=== PATIENT | female | born 1975 | race African-American/Black ===

== ENCOUNTER 2020-04-18 23:07 | Observation (INO) ==
[2020-04-18] MEDS ORDERED: methylPREDNISolone SOD SUC 125 MG/2 ML VIAL IV STA (23:48)
[2020-04-18] MEDS ORDERED: ONDANSETRON 4 MG/2 ML VIAL IV STA (23:48)
[2020-04-18] MEDS ORDERED: ALBUTEROL/IPRATROPIUM 3 ML NEB RESP TX STA (23:48)
[2020-04-18] MEDS ORDERED: FUROSEMIDE 100 MG/10 ML VIAL IV STA (23:48)
[2020-04-18] MEDS ORDERED: MORPHINE 4 MG/1 ML VIAL IV STA (23:48)
[2020-04-19 01:06] LABS: Albumin 3.1 G/DL (3.4-5.0); Bilirubin,Total 0.8 MG/DL (0.2-1.0); Calcium 8.7 MG/DL (8.5-10.1); Osmolality,Calculated 269.2 MOS/KG (273-304); Total Protein 8.6 G/DL (6.4-8.3)
[2020-04-19 01:52] LABS: Basophils % 0.4 % (0.0-0.8); Eosinophils # 0.4 10*3/uL (0.0-0.87); Hematocrit 37.4 VOL% (35.7-47.0); Hemoglobin 10.9 GM/DL (12.0-16.0); Immature Granulocytes % 0.5 %; Immature Granulocytes Absolute 0.05 #; Lymphocytes # 2.8 10*3/uL (1.4-4.0); Lymphocytes % 26.1 % (21.3-54.2); Mean Corpuscular HGB Conc 29.1 GM/DL (32-36); Mean Corpuscular Volume 88.4 FL (87-102); Mean Platelet Volume 11.1 FL (9.6-12.0); Monocytes % 3.7 % (1.7-12.7); Neutrophils % 65.3 % (38.7-73.9); Platelet Count 414 T/CUMM (130-400); Red Blood Count 4.23 MC/CUMM (3.8-5.5); Red Cell Distribution Width 17.3 % (9.3-17.3); White Blood Count 10.7 T/CUMM (4-12)
[2020-04-19] MEDS ORDERED: ENOXAPARIN 120 MG/0.8 ML SYRINGE SUBCUT STA (02:00)
[2020-04-19 02:12] LABS: PT Patient Result 10.6 SECS (9.8-11.9)
[2020-04-19] MEDS ORDERED: GLUCAGON 1 MG VIAL IM PRN (02:18)
[2020-04-19] MEDS ORDERED: NICOTINE 21 MG/24 HR PATCH TRANSDERM PRN (02:18)
[2020-04-19] MEDS ORDERED: DEXTROSE 50% 25 GM/50 ML VIAL IV PRN (02:18)
[2020-04-19] MEDS ORDERED: ALUMINUM/MAGNES/SIMETH MAX STR 30 ML UDCUP PO PRN (02:18)
[2020-04-19] MEDS ORDERED: hydrALAZINE 20 MG/1 ML VIAL IV PRN (02:18)
[2020-04-19 02:57] LABS: Risk Ratio 3.88; Thyroid Stimulating Hormone 11.8 uIU/ml (0.358-3.74); VLDL CHOLESTEROL 25.2 MG/DL
[2020-04-19 06:54] LABS: Free T4 (Free Thyroxine) 1.23 NG/DL (0.76-1.46)
[2020-04-19] MEDS: ALBUTEROL/IPRATROPIUM 3 ML NEB RESP TX SCH ×3 (07:02→19:34)
[2020-04-19 07:31] LABS: Apearance,Urine CLEAR (Clear); Bacteria,Urine Occasional /HPF (Few); Bilirubin,Urine Negative (Negative); Blood, Urine Negative (Negative); Glucose,Urine (UA) Negative (Negative); Ketones,Urine Negative (Negative); Mucus,Urine Occasional /LPF (Occasional); Nitrite,Urine Negative (Negative); Protein,Urine 100 MG/DL; RBC,Urine 1 /HPF (0-4); Squamous Epithelial Cell,Urine Occasional /HPF (0-10); Urine Color Yellow (Yellow); Urine Specific Gravity 1.013 (1.001-1.035); Urine Urobilinogen < 2.0 EU/DL (0.2-1.0); WBC,Urine 2 /HPF (0-6)
[2020-04-19] MEDS: MORPHINE 4 MG/1 ML VIAL IV PRN ×3 (09:07→20:22)
[2020-04-19] MEDS ORDERED: NITROGLYCERIN SL 0.4 MG TABLET SL ONE ×2 (17:19→17:29)
[2020-04-19] MEDS: NITROGLYCERIN SL 0.4 MG TABLET SL PRN ×2 (17:22→17:28)
[2020-04-19] MEDS ORDERED: MORPHINE 4 MG/1 ML VIAL IV PRN (17:42)
[2020-04-19] MEDS: ENOXAPARIN 40 MG/0.4 ML SYRINGE SUBCUT SCH (20:18)
[2020-04-19] MEDS: carvediloL 25 MG TABLET PO SCH (20:18)
[2020-04-19] MEDS: ONDANSETRON 4 MG/2 ML VIAL IV PRN (20:24)
[2020-04-20] MEDS: ALBUTEROL/IPRATROPIUM 3 ML NEB RESP TX SCH ×2 (01:52→07:37)
[2020-04-20] MEDS ORDERED: FUROSEMIDE 20 MG TABLET PO SCH (09:00)
[2020-04-20] MEDS: carvediloL 25 MG TABLET PO SCH (09:09)
[2020-04-20] MEDS: ONDANSETRON 4 MG/2 ML VIAL IV PRN (09:22)
[2020-04-20] MEDS: ENOXAPARIN 40 MG/0.4 ML SYRINGE SUBCUT SCH (09:22)
[2020-04-20] MEDS: MORPHINE 4 MG/1 ML VIAL IV PRN (09:26)
[2020-04-20] MEDS ORDERED: MAGNESIUM SULF RIDER 2 GM in PREMIX 1 EACH IV ONE (11:52)
[2020-04-20] MEDS ORDERED: FUROSEMIDE 40 MG TABLET PO SCH (12:18)
[2020-04-20] MEDS ORDERED: DOXYCYCLINE HYCLATE 100 MG CAPSULE PO SCH (12:30)
[2020-04-20 16:09] VITALS: BP 102/80
[2020-04-21] MEDS ORDERED: LEVOTHYROXINE 150 MCG TABLET PO SCH (07:00)
[2020-04-21] MEDS ORDERED: POTASSIUM CHLORIDE 20 MEQ TABLET PO SCH (09:00)
== END 2020-04-20 16:26 | disposition home or self-care (01) ==
LOC: N.EDINP 23:07 → N.ED 23:07 → N.TELEN 04-19 07:53
PROVIDERS: ADMIT Hospitalist; ATTEND Hospitalist